=== PATIENT | male | born 1995 | race Caucasian/White ===

== ENCOUNTER 2020-06-19 15:36 | Emergency (ER) | payer MEDICAID ==
[~2020-06-19] VITALS: Ht 170.2 cm; Wt 113.4 kg
[2020-06-19 16:05] VITALS: BP 138/75
[2020-06-19] MEDS ORDERED: IBUPROFEN 600 MG TAB PO ONE (16:25)
[2020-06-19 17:09] VITALS: BP 125/72
== END 2020-06-19 17:09 | disposition home or self-care (01) ==
LOC: MED 15:36
DX: U07.1 COVID-19 (principal); F17.210 Nicotine dependence, cigarettes, uncomplicated
CPT/HCPCS: 71045; 99283